=== PATIENT | female | born 1950 ===

== ENCOUNTER 2017-07-06 00:35 | Emergency (ER) | payer OTHER ==
[~2017-07-06] VITALS: Ht 165.1 cm; Wt 94.0 kg
[2017-07-06 00:57] VITALS: Ht 165.1 cm; Wt 94.0 kg
[2017-07-06] MEDS ORDERED: MINERAL OIL 240 ML LOT TOP ONE (03:30)
[2017-07-06] MEDS ORDERED: MINERAL OIL 30ML CUP PO ONE (04:00)
[2017-07-06] MEDS ORDERED: HYDROCODONE/APAP (5/325) TAB PO ONE (04:00)
[2017-07-06] MEDS ORDERED: IBUPROFEN 600 MG TAB PO ONE (04:00)
--- NOTE | 2017-07-06 04:10 | ERD ---
ER Documentation Chief Complaint Chief Complaint bug in rt ear while lying on couch. "the bug is moving" per pt HPI 67-year-old female presents to emergency department for complaints of her right ear foreign body, patient states that insect went inside the right ear. Patient feels that it is moving, is complaining of pain sharp pain, 6/10 scale, not better or worse with anything. Patient does not have any ear discharge. ROS All systems reviewed and are negative except as per history of present illness. Medications Home Meds Active Scripts Ciprofloxacin Hcl* (Ciprofloxacin Hcl*) 500 Mg Tablet, 500 MG PO BID for 3 Days , TAB Prov:GILMAR TIDWELL NP 07/06/17 Ibuprofen* (Motrin*) 600 Mg Tab, 600 MG PO Q6H Y for PAIN AND OR ELEVATED TEMP, #30 TAB Prov:GILMAR TIDWELL NP 07/06/17 Neomycin/Polymyxin/Hydrocort* (Cortisporin* Otic) 10 Ml Susp, 4 DROP RIGHT EAR QID for 7 Days, EA Prov:GILMAR TIDWELL NP 07/06/17 Reported Medications [none] Unknown Strength No Conflict Check 07/06/17 Allergies Allergies: Coded Allergies: No Known Allergy (Unverified , 07/06/17) PMhx/Soc Medical and Surgical Hx: pt denies Surgical Hx History of Surgery: No Anesthesia Reaction: No Hx Neurological Disorder: No Hx Respiratory Disorders: No Hx Cardiac Disorders: Yes (HTN) Hx Psychiatric Problems: No Hx Miscellaneous Medical Probl: No Hx Alcohol Use: No Hx Substance Use: No Hx Tobacco Use: No Smoking Status: Never smoker FmHx Family History: No coronary disease, No diabetes, No other Physical Exam Vitals Vital Signs Date Time Temp Pulse Resp B/P Pulse Ox O2 Delivery O2 Flow Rate FiO2 07/06/17 00:57 98.4 85 18 128/77 98 Physical Exam GENERAL: The patient is well developed and appropriate for usual state of health, in no apparent distress. HEENT: Atraumatic. Ears: Normal tympanic membrane, no erythema or bulging. No ear canal swelling. No ear discharge. Noted right ear foreign body, insect. Nose: normal nasal turbinates, no erythema or swelling. Normal nasal discharge. Throat: oropharynx clear. No tonsillar swelling or tonsillar exudates. No lymphadenopathy. CHEST: Clear to auscultation bilaterally. There are no rales, wheezes or rhonchi. HEART: Regular rate and rhythm. No murmurs, clicks, rubs or gallops. No S3 or S4. ABDOMEN: Soft, nontender and nondistended. Good bowel sounds. No rebound or guarding. No gross peritonitis. No gross organomegaly or masses. No Muir sign or McBurney point tenderness. BACK: No midline or flank tenderness. EXTREMITIES: Equal pulses bilaterally. There is no peripheral clubbing, cyanosis or edema. No focal swelling or erythema. Full range of motion. Grossly neurovascularly intact. NEURO: Alert and oriented. Cranial nerves 2-12 intact. Motor strength in all 4 extremities with 5/5 strength. Sensation grossly intact. Normal speech and gait. SKIN: There is no apparent rash or petechia. The skin is warm and dry. HEMATOLOGIC AND LYMPHATIC: There is no evidence of excessive bruising or lymphedema. No gross cervical, axillary, or inguinal lymphadenopathy. Results 24 hrs Current Medications Medications (Trade) Dose Ordered Sig/Doretha Route PRN Reason Start Time Stop Time Status Last Admin Dose Admin Mineral Oil (Eucerin Lotion) 1 applic ONCE ONCE TOP 07/06/17 03:30 07/06/17 03:59 DC Acetaminophen/ Hydrocodone Bitart (Zimmerman (5/325)) 1 tab ONCE ONCE PO 07/06/17 04:00 07/06/17 04:01 DC Ibuprofen (Motrin) 600 mg ONCE ONCE PO 07/06/17 04:00 07/06/17 04:01 DC 07/06/17 03:39 Mineral Oil (Mineral Oil) 30 ml ONCE ONCE PO 07/06/17 04:00 07/06/17 04:01 DC 07/06/17 04:04 Patient was given medication for pain here in emergency department, after treatment, patient verbalized feeling much better. Patient's pain is improved. Procedures/MDM Procedure note: After patient's verbal consent, the right ear canal is lavage using diluted hydrogen peroxide with normal saline. After procedure, noted foreign body on the right ear, insect.. Patient tolerated procedure well. Multiple attempts of ear lavage and removal with alligator forceps was done, after multiple attempts, the foreign body cannot be removed, the insect foreign body already was killed. Medical Decision making: Patient has a retained foreign body, insect was in the ear, after multiple attempts, the foreign body cannot be removed, patient was given prescription for Corticosporin ibuprofen and ciprofloxacin to prevent infection of affected area and to help with the pain, patient was advised to see ENT specialist, resources were given. Patient was advised to return to emergency department for any worsening symptoms Departure Diagnosis: Primary Impression: Retained foreign body Condition: Stable GILMAR TIDWELL NP Jul 06, 2017 04:10
[2017-07-06] MEDS ORDERED: NPH10OT RIGHT EAR (04:55)
[2017-07-06] MEDS ORDERED: CIPR500T4 PO (04:55)
[2017-07-06] MEDS ORDERED: IBUP-1542 PO (04:55)
== END 2017-07-06 05:35 | disposition home or self-care (01) ==
LOC: FTE 00:35
DX: T16.1XXA Foreign body in right ear, initial encounter (principal); I10 Essential (primary) hypertension; X58.XXXA Exposure to other specified factors, initial encounter; Y92.9 Unspecified place or not applicable